=== PATIENT | male | born 1990 | race Asian ===

== ENCOUNTER 2017-04-04 18:01 | Emergency (ER) | payer MEDICAID ==
[~2017-04-04] VITALS: Ht 170.2 cm; Wt 103.0 kg
[~2017-04-04 18:01] MED LIST: ALLO100T PO; INDO25 PO
[2017-04-04] MEDS ORDERED: ALBU8.5H IH (18:15)
[2017-04-04] MEDS ORDERED: MONT10TA21 PO (18:15)
[2017-04-04] MEDS ORDERED: CITA20TA9 PO (18:15)
[2017-04-04] MEDS ORDERED: MOME13HF2 IH (18:15)
[2017-04-04 18:25] VITALS: BP 127/78
[2017-04-04] MEDS ORDERED: KETOROLAC TROMETHAMINE 60 MG/2 ML VIAL IM ONE (19:00)
[2017-04-04] MEDS ORDERED: ONDANSETRON HCL 4 MG TABLET PO ONE (19:00)
[2017-04-04] MEDS ORDERED: METHOCARBAMOL 500 MG TABLET PO ONE (19:00)
[2017-04-04] MEDS ORDERED: ALLO300 PO (19:12)
== END 2017-04-04 19:16 | disposition home or self-care (01) ==
LOC: EMS 18:03
DX: S16.1XXA Strain of muscle, fascia and tendon at neck level, initial encounter (principal); J45.909 Unspecified asthma, uncomplicated; F17.210 Nicotine dependence, cigarettes, uncomplicated; V49.50XA Passenger injured in collision with unspecified motor vehicles in traffic accident, initial encounter; Y93.89 Activity, other specified; Y92.89 Other specified places as the place of occurrence of the external cause; Y99.8 Other external cause status
CPT/HCPCS: 96372; 99283; J1885; Q0162

== ENCOUNTER 2017-04-12 23:30 | Emergency (ER) | payer MEDICAID ==
[~2017-04-12] VITALS: Ht 170.2 cm; Wt 115.0 kg
[~2017-04-12 23:30] MED LIST changes: +ALBU8.5H IH; -ALLO100T PO; +ALLO300 PO; +CITA20TA9 PO; -INDO25 PO; +MOME13HF2 IH; +MONT10TA21 PO
[2017-04-13] MEDS ORDERED: SILVER SULFADIAZINE 1% 25 GM CREAM TP ONE (01:30)
[2017-04-13] MEDS ORDERED: IBUPROFEN 800 MG TABLET PO ONE (01:30)
[2017-04-13 01:39] VITALS: BP 115/62
== END 2017-04-13 01:41 | disposition home or self-care (01) ==
LOC: EMS 23:31
DX: T23.101A Burn of first degree of right hand, unspecified site, initial encounter (principal); J45.909 Unspecified asthma, uncomplicated; F17.210 Nicotine dependence, cigarettes, uncomplicated; Z88.8 Allergy status to other drugs, medicaments and biological substances; X08.8XXA Exposure to other specified smoke, fire and flames, initial encounter; Y93.89 Activity, other specified; Y92.89 Other specified places as the place of occurrence of the external cause; Y99.8 Other external cause status
CPT/HCPCS: 16000; 99284; 99406; Z7610

== ENCOUNTER 2018-05-14 17:55 | Emergency (ER) | payer MEDICAID ==
[~2018-05-14] VITALS: Ht 167.6 cm; Wt 72.7 kg
[~2018-05-14 17:55] MED LIST changes: -ALBU8.5H IH; +ALBU8.5H8 IH; +CITA-106 PO; -CITA20TA9 PO
[2018-05-14] MEDS ORDERED: HYDROCODONE/ACETAMINOPHEN 5-325 MG TABLET PO ONE (19:15)
[2018-05-14] MEDS ORDERED: KETOROLAC TROMETHAMINE 60 MG/2 ML VIAL IM ONE (19:15)
[2018-05-14 20:47] VITALS: BP 142/84
== END 2018-05-14 20:52 | disposition home or self-care (01) ==
LOC: EMS 17:55
DX: S13.9XXA Sprain of joints and ligaments of unspecified parts of neck, initial encounter (principal); M54.6 Pain in thoracic spine; J45.909 Unspecified asthma, uncomplicated; F32.9 Major depressive disorder, single episode, unspecified; Z88.8 Allergy status to other drugs, medicaments and biological substances; Z79.899 Other long term (current) drug therapy; F17.210 Nicotine dependence, cigarettes, uncomplicated; V49.88XA Car occupant (driver) (passenger) injured in other specified transport accidents, initial encounter; Y93.89 Activity, other specified; Y92.89 Other specified places as the place of occurrence of the external cause; Y99.8 Other external cause status
CPT/HCPCS: 71045; 72050; 72070; 96372; 99284; 99406; J1885

== ENCOUNTER 2023-10-07 04:43 | Emergency (ER) | payer MEDICAID ==
[~2023-10-07] VITALS: Ht 170.2 cm; Wt 131.0 kg
[~2023-10-07 04:43] MED LIST changes: -ALLO300 PO; -CITA-106 PO; -MOME13HF2 IH; +MONT-35 PO; -MONT10TA21 PO
[2023-10-07 04:51] VITALS: TEMP 98
[2023-10-07] MEDS ORDERED: ALBUTEROL SULFATE 2.5 MG/0.5 ML NEB SOLUTION NEB ONE (05:30)
[2023-10-07] MEDS ORDERED: 0.9% SODIUM CHLORIDE 5 ML NEB SOLUTION NEB ONE ×2 (05:35→05:57)
[2023-10-07 05:40] VITALS: PULSE 73; RESP 22; O2SAT 99
[2023-10-07 05:43] VITALS: PULSE 73; RESP 22; O2SAT 99
[2023-10-07 05:45] LABS: COVID AG,FIA SOURCE NASAL SWAB
[2023-10-07 05:59] VITALS: PULSE 70; RESP 22; O2SAT 98
[2023-10-07 06:12] LABS: SARS-COV2 (COVID) ANTIGEN,FIA Negative (Negative)
[2023-10-07 06:13] LABS: INFLUENZA TYPE A NEGATIVE FOR TYPE A (NEGATIVE); INFLUENZA TYPE B NEGATIVE FOR TYPE B (NEGATIVE)
[2023-10-07] MEDS ORDERED: PredniSONE 20 MG TABLET PO ONE (07:00)
[2023-10-07 07:44] LABS: TROPONIN I-HIGH SENSITIVITY 6 ng/L (<76)
[2023-10-07 09:18] VITALS: BP 132/69; PULSE 64; RESP 14
[2023-10-07] MEDS ORDERED: PRED-554 PO (09:18)
[2023-10-07] MEDS ORDERED: ALBUTEROL SULFATE HFA 90 MCG/PUFF 8 GM INHALER IH ONE (09:30)
== END 2023-10-07 09:30 | disposition home or self-care (01) ==
LOC: EMS 04:43
DX: J45.901 Unspecified asthma with (acute) exacerbation (principal); F17.210 Nicotine dependence, cigarettes, uncomplicated; F14.90 Cocaine use, unspecified, uncomplicated; Z98.890 Other specified postprocedural states; Z88.8 Allergy status to other drugs, medicaments and biological substances; Z20.822 Contact with and (suspected) exposure to COVID-19
CPT/HCPCS: 99285; 71045; 87426; 84484; 87804; 36415; 94640; 93005; J7512; J3535; J7613